=== PATIENT | male | born 1980 | race Caucasian/White ===

== ENCOUNTER → 2021-02-15 | Outpatient (CLI) | payer OTHER ==
[~2021-02-15] MED LIST: FLEXERIL 10 MG10 MG PO; IBUPROFEN800 MG PO
== END ==
LOC: KOH-I 12:53
DX: M25.561 Pain in right knee (principal)
CPT/HCPCS: 73562

== ENCOUNTER → 2021-05-04 | Outpatient (CLI) | payer OTHER | LOC: KOH-I 14:43 | DX: M25.572 Pain in left ankle and joints of left foot (principal); M25.571 Pain in right ankle and joints of right foot | CPT/HCPCS: 73610 ==

== ENCOUNTER → 2021-07-20 | Outpatient (CLI) | payer OTHER | LOC: KOH-I 15:09 | DX: S82.831A Other fracture of upper and lower end of right fibula, initial encounter for closed fracture (principal); X58.XXXA Exposure to other specified factors, initial encounter | CPT/HCPCS: 73610 ==

== ENCOUNTER → 2021-11-04 | Outpatient (CLI) | payer OTHER | LOC: KOH-I 12:59 | DX: M47.896 Other spondylosis, lumbar region (principal) | CPT/HCPCS: 72100 ==